=== PATIENT | female | born 1980 | race Caucasian/White ===

== ENCOUNTER → 2021-10-12 16:28 | Outpatient (BNVA) | payer BC, MEDICAID, SELFPAY | PROVIDERS: PCP Family Medicine; Visit Provider Family Medicine | DX: N91.5 Oligomenorrhea, unspecified (principal); M54.2 Cervicalgia; M54.50 Low back pain, unspecified; G89.29 Other chronic pain; R63.4 Abnormal weight loss | CPT/HCPCS: 80053; 80061; 82672; 83001; 84439; 84443; 85025 ==

== ENCOUNTER → 2022-05-30 15:55 | Outpatient (BNVA) | payer BC, MEDICAID, SELFPAY | PROVIDERS: PCP Family Medicine; Visit Provider Family Medicine | DX: D64.9 Anemia, unspecified (principal); Z13.220 Encounter for screening for lipoid disorders; Z13.6 Encounter for screening for cardiovascular disorders; G44.209 Tension-type headache, unspecified, not intractable; M54.2 Cervicalgia | CPT/HCPCS: 80053; 82607; 84443; 85025 ==

== ENCOUNTER → 2023-08-08 10:57 | Outpatient (BNVA) | payer BC, MEDICAID, SELFPAY | PROVIDERS: PCP Family Medicine; Visit Provider Family Medicine | DX: M25.512 Pain in left shoulder (principal); G89.29 Other chronic pain; M54.2 Cervicalgia; M47.812 Spondylosis without myelopathy or radiculopathy, cervical region; R63.4 Abnormal weight loss; D64.9 Anemia, unspecified; M54.50 Low back pain, unspecified; Z13.220 Encounter for screening for lipoid disorders; Z13.6 Encounter for screening for cardiovascular disorders; E83.42 Hypomagnesemia; E83.39 Other disorders of phosphorus metabolism; E55.9 Vitamin D deficiency, unspecified; R79.89 Other specified abnormal findings of blood chemistry | CPT/HCPCS: 80053; 80061; 82306; 82607; 82728; 82746; 83036; 83540; 83735; 84100; 84439; 84443; 85025 ==

== ENCOUNTER → 2024-09-10 09:09 | Outpatient (BNVA) | payer BC, MEDICAID, SELFPAY | PROVIDERS: PCP Family Medicine; Visit Provider Family Medicine | DX: M25.572 Pain in left ankle and joints of left foot (principal); M25.472 Effusion, left ankle; W19.XXXA Unspecified fall, initial encounter | CPT/HCPCS: 73600 ==